=== PATIENT | female | born 1980 ===

== ENCOUNTER 2016-10-14 20:04 | Emergency (ER) | payer MEDICAID ==
[~2016-10-14] VITALS: Ht 157.5 cm; Wt 63.0 kg
[2016-10-14 20:13] VITALS: BP 117/78; PULSE 78; RESP 20; O2SAT 100
--- NOTE | 2016-10-14 22:37 | ED.REPORT ---
HPI-General Illness Date of Service Oct 14, 2016 ED Provider: Roverto Bella DO Pt is a 36 year old female with a history of anxiety who presents to the ED complaining of worsening anxiety onset yesterday night. She c/o nausea and headache secondary to her anxiety onset today. She denies fever, syncope, LOC, and neck stiffness. Pt reports that she is visiting from [place] for the past week, and she accidentally left her anxiety medication at home. The pt states that she has attempted to relieve her symptoms with Imitrex and ibuprofen, but developed a rash and swelling. She also had attempted to take Tylenol without relief. Nursing Notes Stated Complaint: ANXIETY,MIGRAINE Chief Complaint: Headache Nursing Notes Reviewed: Yes Allergies: Coded Allergies: hydroxyzine (Verified Allergy, Unknown, 10/14/16) ibuprofen (Verified Allergy, Unknown, 10/14/16) ketorolac (Verified Allergy, Unknown, 10/14/16) metronidazole (Verified Allergy, Unknown, 10/14/16) sumatriptan (Verified Allergy, Unknown, 10/14/16) General Time Seen by MD: 22:37 Chief Complaint Other (Anxiety) Hx Obtained From: Patient Arrived By: Walk-in Sudden in Onset?: No Onset Occurred: Yesterday Symptom Duration: Since onset Location: : Head Quality: Aching Radiation: : Does not radiate Severity: Current: Moderate Severity: Maximum: Moderate Recent Healthcare: No recent doctor visit, No recent hospitalization Similar Sx Previous: Yes Past Medical History Past Medical History Anxiety Past Surgical History Denies Smoking History Unknown if Ever Smoker Social History Other Social History: Lives with children Ambulatory Status Independent Review of Systems Full Review of Systems Constitutional: Denies: Fever GI: Reports: Nausea Neurologic: Reports: Headache, Denies: Change LOC, Syncope Psychiatric: Reports: Anxiety Complete sys rev & neg: except as marked. Physical Exam Vital Signs Vital Signs Date Time Temp Pulse Resp B/P Pulse Ox O2 Delivery O2 Flow Rate FiO2 10/15/16 00:16 36.4 65 20 125/82 97 Room Air 10/14/16 23:46 36.4 65 125/82 97 Room Air 10/14/16 20:13 36.9 78 20 117/78 100 Room Air Initial VS: Reviewed Head / Eyes: Atraumatic, Normocephalic Respiratory: Breath sounds normal, Clear to auscultation, No respiratory distress Cardiovascular: Regular rate & rhythm, Heart sounds normal, Intact distal pulses Abdomen / GI: Soft, Non-tender Extremities: Vascular intact, Neuro intact Skin: Warm, Dry, No cyanosis Neurologic: Alert, Oriented, Nonfocal Psychiatric: Mood/affect normal, Behavior normal General/Constitutional: Awake, Alert, No acute distress Sitting on bed and comfortable. Moving and interacting with her children. Hand frequently on her head secondary to headache. Neck: Atraumatic, Supple, Full range of motion Neurologic: Oriented X3, Speech NL, CN II - XII intact Re-Eval/Medical Decision Med Decision/Clinical Course She has recurrent headaches associated with anxiety. She states that this headache is just like her many prior. There is no associated syncopal episode. She has been off her anxiety medications. She has no neck stiffness. No vomiting. She did not come in by ambulance. She declined CT imaging think that is the right decision. I prescribed her a seven-day course of her anxiety medications. She is treated with dexamethasone in the emergency department and her headache seemed to improve. Source of Hx: Old records Time of Eval: 23:01 Re-Evaluation/Progress Note: Pt rechecked. Informed pt of plan for discharge. Pt understands and agrees with plan for discharge. F/U instructions and RTER warnings given. All questions addressed. Counseled Regarding: Diagnosis, Need for follow-up, When/why to return to ED Discharge & Departure Primary Impression: Headache Headache type: unspecified Headache chronicity pattern: unspecified pattern Intractability: not intractable Qualified Code: R51 - Headache Additional Impression: Anxiety Disposition: Home Discharge Condition All VS Reviewed: Yes Condition: Stable Patient Instructions: Acute Headache (ED), Anxiety (ED) Additional Instructions: Take your medications as prescribed. Do not drive tonight as you have received sedating medications. Fill your prescription tomorrow. Don't drink alcohol while taking the Clonazepam , and don't drive while taking any of the sedating medications. If you develop a stiff neck or fever, return to the Emergency Department for a CT scan as discussed. Follow up with your primary care provider once you return home in [place]. Return to the Emergency Department for any new or worrisome symptoms. Referrals: OTHER,PHYSICIAN Scribe Attestation Portions of this note were transcribed by Ce Peck. I, Dr. Bella personally performed the history, physical exam and medical decision-making; I reviewed and confirmed the accuracy of the information in the transcribed note. Signed by : Sharla Lovett, 10/14/16. copies to: OTHER,PHYSICIAN Roverto Bella DO Oct 14, 2016 22:37 Ce Swenson Oct 14, 2016 22:44
[2016-10-14] MEDS ORDERED: Dexamethasone 10 mg/mL Inj IM ONE (23:10)
[2016-10-14] MEDS ORDERED: lamoTRIgine 100 mg Tablet PO ONE (23:10)
[2016-10-14] MEDS ORDERED: Dexamethasone 20 mg/2 mL Oral Solution PO ONE (23:25)
[2016-10-14 23:46] VITALS: BP 125/82; PULSE 65; O2SAT 97
[2016-10-15 00:16] VITALS: BP 125/82; PULSE 65; RESP 20; O2SAT 97
== END 2016-10-15 00:18 | disposition home or self-care (01) ==
LOC: SED 20:04
DX: R51 Headache (principal); F41.9 Anxiety disorder, unspecified; R11.0 Nausea; Z79.2 Long term (current) use of antibiotics; Z79.1 Long term (current) use of non-steroidal anti-inflammatories (NSAID)